=== PATIENT | female | born 1950 | race Two or more races ===

== ENCOUNTER 2025-03-11 15:35 | Emergency (ER) | payer MEDICARE, OTHER, SELFPAY ==
[2025-03-11 15:42] VITALS: BP 153/74
[2025-03-11 15:58] LABS: Hematocrit 43.2 % (37.0-47.0); Hemoglobin 13.9 g/dL (12.0-16.0); Mean Corp Hgb Conc. 32.2 g/dL (33.0-37.0); Mean Corpuscular Volume 88.2 fL (81.0-99.0); Nucleated Red Blood Cells % 0 %; Platelet Count 283 10^3/uL (130-400); Red Cell Dist. Width 13.8 % (11.5-14.5)
[2025-03-11 15:59] LABS: Urine Character Clear (Clear)
[2025-03-11 16:12] LABS: Urine White Cell 0-2 /HPF (0-5)
[2025-03-11 16:18] LABS: ALT (SGPT) 19 U/L (0-35); AST (SGOT) 25 U/L (14-36); Albumin 4.9 g/dl (3.5-5.0); Alkaline Phosphatase 67 U/L (38-126); Blood Urea Nitrogen 18 mg/dl (7-17); Calcium 10.0 mg/dl (8.4-10.2); Carbon Dioxide 31 mmol/L (22-30); Chloride 98 mmol/L (98-107); Glucose 175 mg/dl (70-99); Potassium 4.2 mmol/L (3.5-5.1); Sodium 137 mmol/L (135-145); Total Protein 7.9 g/dl (6.3-8.2); eGFR > 60.00
[2025-03-11 19:41] VITALS: BP 131/65
[2025-03-11 20:47] VITALS: BP 117/61; BMI 33.1
--- NOTE | 2025-03-11 22:01 | ED.GENMED ---
History of Present Illness
General
Chief Complaint: Urinary Symptoms
Source: patient
Exam Limitations: none
Time Seen by Provider: 03/11/25 21:19
Nursing documentation reviewed up to this point in time: agreed with
History of Present Illness
History of Present Illness:
Patient is a 74 y.o female presenting to the emergency department with lower abdominal discomfort and urinary urgency. Patient states that she started with lower abdominal discomfort and urinary urgency on Monday night. She also describes some
pain across her lower back. She states the pain has been constant and is 5/10 in severity. She was seen by her primary care provider yesterday where they performed a urine sample in office which showed 'red blood cells and uric acid crystals'.
She was referred for an outpatient CT scan however given persistence of symptoms she came to the emergency department today for evaluation.
Patient denies any fever or chills. No chest pain or shortness of breath. No nausea, vomiting. No diarrhea. She has not had any visible hematuria. No prior history of kidney stones.
Review of Systems
Review of Systems
Allergies reviewed?: Yes
All Other Systems: ROS reviewed and negative except as documented in HPI and ROS
Phy Exam
Physical Exam
Physical Exam:
Vitals: Patient's vital signs are stable. Afebrile
General: Patient is in no distress
Skin: Warm and dry, no rashes or lesions
Head: Normocephalic, atraumatic
Throat: Protecting airway
Neck: Normal ROM, no cervical spine tenderness, no meningismus
Cardiac: Regular rate and rhythm, no murmurs.
Pulm: Normal respiratory effort,. Lungs clear bilaterally
Abdomen: Abdomen soft. Mild suprapubic tenderness. No rebound or guarding. No CVA tenderness
Extremities: No evidence of cyanosis or edema. Palpable DP pulses bilaterally
Neuro: AAOx3. Grossly intact.
Psychiatric: Normal affect.
Course
Orders/Labs/Results
Orders:
Orders
03/11/25 15:45
Urinalysis Reflex To Culture Urgent
Date Specimen was Collected: 03/11/25
Time Specimen was Collected: 15:41
Urine Microscopic Reflex Cult Urgent
03/11/25 15:49
Complete Blood Count/With Diff Urgent
Comprehensive Metabolic Panel Urgent
03/11/25 21:42
CT Abd/pelvis W Iv Cont Urgent
Comment:
Reason For Exam: lower back/ abdominal pain
0.9% Sodium Chloride 1000 ml [Nss] 1,000 ml IV BOLUS
Ketorolac [Toradol] 15 mg IV NOW STA
Abnormal Lab Results
03/11/25 03/11/25
15:45 15:49
MCHC 32.2 L g/dL
(33.0-37.0)
Absolute Neuts (auto) 7.9 H 10^3/uL
(1.4-6.5)
Carbon Dioxide 31 H mmol/L
(22-30)
BUN 18 H mg/dl
(7-17)
Glucose 175 H mg/dl
(70-99)
Urine Ketones 1+ A
(Negative)
Ur Occult Blood Reflex 3+ A
(Negative)
Urine RBC 3-6 A /HPF
(0-2)
Urine Bacteria (Reflex) Few A
(Negative)
Urine Glucose 4+ A
(Negative)
03/11/25 15:49
03/11/25 15:49
Vital Signs
Initial and Last Documented VS:
Initial Vital Signs
Temp Pulse Resp BP Pulse Ox
98.2 F 103 16 153/74 95
03/11/25 15:42 03/11/25 15:42 03/11/25 15:42 03/11/25 15:42 03/11/25 15:42
Last Documented Vital Signs
Temp Pulse Resp BP Pulse Ox
97.6 F 58 15 116/6 95
03/11/25 23:36 03/11/25 23:36 03/11/25 23:36 03/11/25 23:36 03/11/25 23:36
MDM/Problems Addressed
Differential Diagnosis Includes:
Not limited to: Cystitis, pyelonephritis, renal colic, diverticulitis, muscular strain, etc.
MDM/Problems Addressed:
74-year-old female with a few days of urinary frequency and microscopic hematuria noted outpatient. She has some vague lower back/ abdominal discomfort, however, does not localize to one side. No associated dysuria.
Vitals and physical exam as above.
Differential includes possible cystitis, renal colic, diverticulitis, etc. Back pain may be muscular in etiology.
Symptoms do not seem clearly consistent with renal colic. Will check UA, CT scan abdomen/pelvis w/ contrast for further evaluation. Will treat pain and give IVF.
Labs unremarkable. Kidney function normal. Urine shows few RBCs however no evidence of infection. CT scan without acute intra-abdominal pathology.
Patient remain well appearing and in no distress. Work up negative. No evidence of infectious process today to warrant antibiotics. Feel stable for discharge home with supportive care. Advised outpatient urology follow up to ensure microscopic
hematuria resolves. Patient comfortable with plan.
Chronic conditions affecting care:
N/A
Acute Exacerbation and/or Progression of Chronic Illness:
N/A
*Pulse Oximetry
SaO2: 97
Oxygen Mode of Delivery: Room air
Patient hypoxic: no
*EKG
Interpreted by ED Provider?: NA
*Psychiatric Social Worker Interpretation
Rate: Psychiatric Social Worker- N/A
*Critical Care Note
Total Time (30-74mins, 75-104mins- exclusive of procedures): Not Applicable
ED Attending Note
-
Portions of this chart may have been created with voice recognition software.� Occasional wrong word or��sound alike� substitutions may have occurred due to the inherent limitations of voice recognition software.
Discharge Plan
Departure
Patient Disposition: Home (Routine Discharge)
Date of Disposition: 03/11/25
Time of Disposition: 23:54
Patient with high blood pressure during this ER visit?: Yes
Condition: Good
Discharge Problem:
Hematuria
Instructions: Blood in the Urine (Hematuria), Adult (DC), BLOOD PRESSURE
Referrals:
Emanuel Deluna MD [Family Provider, Internal Medicine]
Watson Dunn MD [Active, Urology] - Next open appointment
Activity Restrictions/Additional Instructions:
RETURN TO THE EMERGENCY DEPARTMENT ANY FEVER, CHILLS, PERSISTENT ABDOMINAL/BACK PAIN, BURNING WITH URINATION OR PERSISTENT BLOOD IN URINE, VOMITING, SIGNIFICANT WEAKNESS, OR ANY OTHER CONCERNS
- As discussed-your urine sample in the emergency department did show red blood cells. However, there was no evidence of an acute infection. Please follow-up with urology for further evaluation/management to ensure that blood cells in urine
resolved. You may require additional imaging or testing.
- Your CT scan showed no acute abnormalities in your abdomen/pelvis.
- Please continue to stay well-hydrated. You can take Tylenol or apply lidocaine patches to lower back as needed for discomfort.
- Follow-up with urology and primary care for further evaluation/management
Monitor your symptoms closely and return to the emergency department with any acute worsening/new symptoms or any other concerns
Interventions
Interventions:
*Risk Screen - Suicide Last Done: 03/11/25 15:43
*General Assessment Last Done: 03/11/25 20:50
*Neglect/Abuse Screening Last Done: 03/11/25 15:43
*ED- Fall Risk Assessment Last Done: 03/11/25 20:50
*ED COVID-19 Vaccine History Last Done: 03/11/25 20:50
*ED Influenza Vaccine History Last Done: 03/11/25 20:50
*Nursing Disposition Last Done: 03/11/25 23:59
ED-Female Genitourinary Assessment Last Done: 03/11/25 20:49
Discharge Date and Time
Discharge Date/Time: 03/12/25 00:02
Print Language: TURKISH
[2025-03-11] MEDS: TORADOL 15 MG IV (22:03)
[2025-03-11] MEDS: NSS 1000 IV (22:04)
[2025-03-11 23:36] VITALS: BP 116/6
== END 2025-03-12 00:02 | disposition home or self-care (01) ==
LOC: EMR 15:35
PROVIDERS: Student in an Organized Health Care Education/Training Program; EMERGENCY PHYSICIAN Emergency Medicine; FAMILY PHYSICIAN Internal Medicine
DX: R31.9 Hematuria, unspecified (principal); R10.30 Lower abdominal pain, unspecified; R39.15 Urgency of urination; M54.50 Low back pain, unspecified
CPT/HCPCS: 96374; 96361; 99284; 74177; 80053; 81003; 81015; 85025; Q9967